=== PATIENT | male | born 1965 | race Caucasian/White ===

== ENCOUNTER → 2023-05-08 | Outpatient (CLI) | payer OTHER ==
--- NOTE | 2023-05-11 16:24 | MR ---
EXAMINATION TYPE: MR knee RT wo con DATE OF EXAM: 05/08/2023 8:03 AM CLINICAL INDICATION:Male, 57 years old with history of M23.306; , Right knee pain S/P injury 3 weeks ago. COMPARISON: None TECHNIQUE: Multi planar, multi sequence imaging was performed of the knee including: Triplane proton density fat-saturated images and T1-weighted imaging. No Gadolinium was given. IV Contrast: cc (none if empty) FINDINGS: Medial meniscus: Intact, increased signal within the medial meniscus body. This does not extend t o the articular surface. Medial femorotibial cartilage: Intact, no full-thickness defects. There is mild thinning more lat erally on the femoral condyle. Medial collateral ligament: Intact Lateral meniscus: Intact Lateral femorotibial cartilage: Intact, no full-thickness defects. Lateral collateral ligament complex: Intact Patellofemoral alignment: Normal Patellofemoral cartilage: Intact Extensor mechanism: Intact. Joint/bursal fluid: Small joint effusion is present. Muscles/tendons: The patellar tendon, quadriceps tendon, IT band, pes anserinus tendons, semimembrano shreya tendon, popliteus tendon, and biceps femoris tendon are all within normal limits. Bone marrow: Normal. Anterior cruciate ligament: Intact with increased PD signal. Posterior cruciate ligament: Intact. Soft tissues: Unremarkable. IMPRESSION: 1. Low-grade sprain of the ACL suggested, and ACL is intact.. 2. Posterior horn medial meniscus with suspected intrasubstance tear there is mucoid degeneration. N o displaced meniscal fragments. 3. The PCL and collateral ligaments are intact. 4. Trace joint effusion. 5. No evidence of fracture. 6. 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
== END | disposition home or self-care (01) ==
LOC: RADMRIMAIN 07:30
PROVIDERS: ATTEND Orthopaedic Surgery
DX: S83.241A Other tear of medial meniscus, current injury, right knee, initial encounter (principal); M25.461 Effusion, right knee; M23.306 Other meniscus derangements, unspecified meniscus, right knee; M17.11 Unilateral primary osteoarthritis, right knee